=== PATIENT | female | born 1940 | race Caucasian/White ===

== ENCOUNTER → 2017-08-03 | Outpatient (CLI) | payer OTHER ==
--- NOTE | 2017-08-03 10:50 | DIAGNOSTIC IMAGING REPORT ---
CT SCAN OF THE PARANASAL SINUSES CLINICAL HISTORY: Allergic rhinitis. Headache. COMPARISON STUDY: No priors. TECHNIQUE: High-resolution CT scan of the paranasal sinuses is performed. Images are reviewed in the axial, sagittal, and coronal planes. IV contrast was not administered for this examination. Examination is performed using the fusion protocol. A dose lowering technique was utilized adhering to the principles of ALARA. CT DOSE: 532.30 mGy.cm FINDINGS: Maxillary antra: Trace dependent mucosal thickening is seen on the right. Clear on the left. Anterior ethmoid sinuses: Clear. Posterior ethmoid sinuses: Clear. Sphenoid sinuses: Clear. Frontal sinuses: Clear. Ostiomeatal complexes: Patent bilaterally. Frontoethmoidal and sphenoethmoidal recesses: Patent bilaterally. Carotid arteries: The carotid arteries are covered noting a septal attachment on the right. Ethmoid roofs: The ethmoid roofs are symmetric. Nasal turbinates: Normal in appearance. Nasal septum: There is mild leftward deviation of the bony nasal septum with a large spur. Optic nerves: Covered. Orbits: The bony orbits are intact. Orbital contents are normal in appearance. Calvarium: The skeletal structures are osteopenic. The imaged calvarium is normal in appearance Mastoid air cells: There is a small left mastoid effusion. The right mastoid air cells are clear. Brain parenchyma: Partially visualized brain parenchyma is within normal limits. There is atherosclerotic calcification of the cavernous carotid arteries. IMPRESSION: No significant paranasal sinus disease is identified. See above. Electronically signed by: Jameson Velásquez M.D. 08/03/2017 10:49 AM Dictated Date/Time: 08/03/2017 10:44 AM
== END | disposition home or self-care (01) ==
LOC: C.CTS 10:12
DX: J30.9 Allergic rhinitis, unspecified (principal)